=== PATIENT | male | born 1990 | race African-American/Black ===

== ENCOUNTER 2021-06-13 20:47 | Inpatient (IN) | payer MEDICAID, OTHER ==
[~2021-06-13] VITALS: Ht 180.3 cm; Wt 132.0 kg
[2021-06-13] MEDS ORDERED: SODIUM CHLORIDE 0.9% 1000ML BAG (SEPSIS BOLUS) IV ONE (21:15)
[2021-06-13] MEDS ORDERED: VANCOMYCIN 1 G PREMIX 200 ML IV ONE (21:45)
[2021-06-13] MEDS ORDERED: PIPERACILLIN/TAZ 3.375G PREMIX 50 ML IV ONE (21:45)
[2021-06-13 21:48] LABS: HEMATOCRIT. 46.3 % (42.0-52.0); HEMOGLOBIN. 15.3 g/dL (14.0-18.0); MEAN CORPUSCULAR HEMOGLOBIN 25.8 pg (28.0-32.0); MEAN CORPUSCULAR VOLUME 77.9 fL (80.0-94.0); MEAN PLATELET VOLUME 9.3 fl (7.4-10.4); PLATELET 311 x1000/uL (130-400); RED BLOOD CELL COUNT 5.94 mill/uL (4.7-6.1); RED CELL DISTRIBUTION WIDTH 14.1 % (11.6-14.6)
[2021-06-13 21:55] LABS: CHLORIDE 95 mEq/L (98-107)
[2021-06-13 21:56] LABS: INR 1.1; PROTHROMBIN TIME 11.8 sec (9.6-11.0)
[2021-06-13 21:58] LABS: ETHANOL BLOOD < 10 mg/dL
[2021-06-13 22:07] LABS: PLATELET ESTIMATE NORMAL
[2021-06-14] VITALS (19 sets, daily range): BP systolic 95–158; BP diastolic 45–94
[2021-06-14 00:34] LABS: CLARITY URINE CLEAR (CLEAR); COLOR URINE DARK YELLOW (YELLOW); KETONES URINE NEGATIVE (NEGATIVE); LEUKOCYTE ESTERASE URINE NEGATIVE (NEGATIVE); NITRITE URINE NEGATIVE (NEGATIVE); OCCULT BLOOD URINE TRACE (NEGATIVE); PROTEIN URINE 2+ (NEGATIVE); SPECIFIC GRAVITY URINE 1.082 (1.005-1.030)
[2021-06-14 00:50] LABS: *AMPHETAMINES SCREEN URINE NEGATIVE (NEGATIVE); *BARBITURATES SCREEN URINE NEGATIVE (NEGATIVE); *BENZODIAZEPINES SCREEN URINE NEGATIVE (NEGATIVE); *COCAINE SCREEN URINE NEGATIVE (NEGATIVE)
[2021-06-14 00:51] LABS: CANNABINOID URINE SCREEN NEGATIVE (NEGATIVE); METHADONE URINE SCREEN NEGATIVE (NEGATIVE); OPIATES URINE SCREEN NEGATIVE (NEGATIVE); PHENCYCLIDINE URINE SCREEN NEGATIVE (NEGATIVE)
[2021-06-14] MEDS ORDERED: PIPERACILLIN/TAZ 3.375G PREMIX 50 ML IV SCH (01:45)
[2021-06-14] MEDS ORDERED: ONDANSETRON HCL 4MG/2ML INJ IV PRN (01:45)
[2021-06-14] MEDS ORDERED: ACETAMINOPHEN 650MG SUPP PR PRN ×2 (01:45)
[2021-06-14] MEDS ORDERED: DIPHENHYDRAMINE 50MG/ML VIAL IV PRN (01:45)
[2021-06-14] MEDS ORDERED: VANCOMYCIN 1 G PREMIX 200 ML IV SCH (01:45)
[2021-06-14] MEDS: SODIUM CHLORIDE 0.9% 1,000 ML IV SCH ×3 (02:27→15:28)
[2021-06-14] MEDS ORDERED: PIPERACILLIN/TAZOBACTAM 3.375 G in DEXTROSE 5% WATER 50 ML IV SCH (06:00)
[2021-06-14] MEDS ORDERED: IOHEXOL-300 100 ML BOTTLE ONE (07:09)
[2021-06-14] MEDS ORDERED: VANCOMYCIN 1250MG in DEXTROSE 5% WATER 250ML IV SCH ×2 (08:00→18:00)
[2021-06-14] MEDS ORDERED: METRONIDAZOLE 500 MG PREMIX 100 ML IV SCH (12:00)
[2021-06-14] MEDS: PANTOPRAZOLE SODIUM 40 MG/VIAL IV SCH (12:46)
[2021-06-14] MEDS ORDERED: FENTANYL CITRATE/PF 50MCG/ML 2ML VIAL ONE (13:11)
[2021-06-14] MEDS ORDERED: SODIUM BICARBONATE 4% (2.4MEQ) 5ML VIAL IV ONE (13:11)
[2021-06-14] MEDS ORDERED: LIDOCAINE HCL 1% 20ML VIAL (Pyxis) INJ ONE (13:12)
[2021-06-14] MEDS ORDERED: FENTANYL CITRATE/PF 50MCG/ML 2ML VIAL IV NR (15:00)
[2021-06-14] MEDS: PIPERACILLIN/TAZOBACTAM 3.375G in DEXT 5% WATER 50ML IV SCH ×2 (15:27→22:17)
[2021-06-14] MEDS ORDERED: SODIUM CHLORIDE 0.9% 1,000 ML IV NR (15:30)
[2021-06-14 16:02] LABS: HEMATOCRIT. 40.1 % (42.0-52.0); HEMOGLOBIN. 13.3 g/dL (14.0-18.0); MEAN CORPUSCULAR HEMOGLOBIN 25.9 pg (28.0-32.0); MEAN CORPUSCULAR VOLUME 78.1 fL (80.0-94.0); MEAN PLATELET VOLUME 9.1 fl (7.4-10.4); PLATELET 231 x1000/uL (130-400); RED BLOOD CELL COUNT 5.14 mill/uL (4.7-6.1); RED CELL DISTRIBUTION WIDTH 13.9 % (11.6-14.6)
[2021-06-14 16:14] LABS: CHLORIDE 105 mEq/L (98-107)
[2021-06-14 17:36] LABS: PLATELET ESTIMATE NORMAL
[2021-06-14] MEDS ORDERED: SODIUM CHLORIDE 0.9% 1,000 ML IV SCH (18:48)
[2021-06-14] MEDS: DEXT 5%/0.9% NACL 1,000 ML IV SCH (20:22)
[2021-06-15] VITALS (12 sets, daily range): BP systolic 125–169; BP diastolic 70–101
[2021-06-15] MEDS: DEXT 5%/0.9% NACL 1,000 ML IV SCH ×3 (03:09→22:40)
[2021-06-15] MEDS: PIPERACILLIN/TAZOBACTAM 3.375G in DEXT 5% WATER 50ML IV SCH ×3 (06:05→21:19)
[2021-06-15 08:15] LABS: CHLORIDE 110 mEq/L (98-107)
[2021-06-15 08:24] LABS: HEMATOCRIT. 37.1 % (42.0-52.0); MEAN CORPUSCULAR HEMOGLOBIN 25.5 pg (28.0-32.0); MEAN CORPUSCULAR VOLUME 79.1 fL (80.0-94.0); MEAN PLATELET VOLUME 9.2 fl (7.4-10.4); PHOSPHORUS 1.6 mg/dL (2.5-4.9); PLATELET 230 x1000/uL (130-400); RED BLOOD CELL COUNT 4.69 mill/uL (4.7-6.1); RED CELL DISTRIBUTION WIDTH 14.5 % (11.6-14.6)
[2021-06-15] MEDS: PANTOPRAZOLE SODIUM 40 MG/VIAL IV SCH (09:21)
[2021-06-15 13:44] LABS: ATYPICAL LYMPHOCYTES 1; NUCLEATED RED BLOOD CELLS 2 /100 WBC
[2021-06-15 13:45] LABS: PLATELET ESTIMATE NORMAL
[2021-06-15] MEDS ORDERED: POTASSIUM PHOS,M-BASIC-D-BASIC 30 MMOL in DEXT 5% WATER 500 ML IV NR (17:00)
[2021-06-16] VITALS (13 sets, daily range): BP systolic 123–160; BP diastolic 55–95
[2021-06-16 06:18] LABS: CHLORIDE 112 mEq/L (98-107)
[2021-06-16 06:29] LABS: PHOSPHORUS 2.6 mg/dL (2.5-4.9)
[2021-06-16] MEDS: PIPERACILLIN/TAZOBACTAM 3.375G in DEXT 5% WATER 50ML IV SCH ×2 (06:30→14:00)
[2021-06-16] MEDS: POLYVINYL ALCOHOL OPHTH DROPS 15ML BOTHEYE SCH ×4 (06:31→23:17)
[2021-06-16] MEDS: DEXT 5%/0.9% NACL 1,000 ML IV SCH ×4 (06:31→20:03)
[2021-06-16] MEDS: PANTOPRAZOLE SODIUM 40 MG/VIAL IV SCH (09:00)
[2021-06-16] MEDS: AMPICILLIN SOD/SULBACTAM NA 3 G in SODIUM CHLORIDE 0.9% 100 ML IV SCH (20:03)
[2021-06-17] VITALS (11 sets, daily range): BP systolic 113–149; BP diastolic 55–96
[2021-06-17] MEDS: AMPICILLIN SOD/SULBACTAM NA 3 G in SODIUM CHLORIDE 0.9% 100 ML IV SCH ×4 (02:09→21:30)
[2021-06-17] MEDS: DEXT 5%/0.9% NACL 1,000 ML IV SCH ×3 (03:54→21:31)
[2021-06-17] MEDS: POLYVINYL ALCOHOL OPHTH DROPS 15ML BOTHEYE SCH ×3 (05:07→18:28)
[2021-06-17] MEDS: PANTOPRAZOLE SODIUM 40 MG/VIAL IV SCH (08:40)
[2021-06-17] MEDS ORDERED: LIDOCAINE HCL 1% 20ML VIAL (Pyxis) INJ ONE (08:45)
[2021-06-18] VITALS (8 sets, daily range): BP systolic 127–151; BP diastolic 71–84
[2021-06-18] MEDS: AMPICILLIN SOD/SULBACTAM NA 3 G in SODIUM CHLORIDE 0.9% 100 ML IV SCH ×4 (01:35→20:23)
[2021-06-18] MEDS: POLYVINYL ALCOHOL OPHTH DROPS 15ML BOTHEYE SCH ×5 (01:35→22:59)
[2021-06-18] MEDS: DEXT 5%/0.9% NACL 1,000 ML IV SCH ×3 (03:29→17:10)
[2021-06-18] MEDS: PANTOPRAZOLE SODIUM 40 MG/VIAL IV SCH (08:34)
[2021-06-18] MEDS ORDERED: IOHEXOL-300 50 ML BOTTLE IV ONE (10:35)
[2021-06-18 16:57] LABS: HEMATOCRIT. 37.1 % (42.0-52.0); HEMOGLOBIN. 12.3 g/dL (14.0-18.0); MEAN CORPUSCULAR VOLUME 78.6 fL (80.0-94.0); MEAN PLATELET VOLUME 8.6 fl (7.4-10.4); PLATELET 329 x1000/uL (130-400); RED BLOOD CELL COUNT 4.73 mill/uL (4.7-6.1); RED CELL DISTRIBUTION WIDTH 14.4 % (11.6-14.6)
[2021-06-18 17:05] LABS: CHLORIDE 114 mEq/L (98-107)
[2021-06-18 18:05] LABS: PLATELET ESTIMATE NORMAL
[2021-06-19] VITALS: BP 130/75
[2021-06-19] MEDS: AMPICILLIN SOD/SULBACTAM NA 3 G in SODIUM CHLORIDE 0.9% 100 ML IV SCH ×4 (01:05→20:06)
[2021-06-19] MEDS: DEXT 5%/0.9% NACL 1,000 ML IV SCH ×2 (01:06→12:10)
[2021-06-19 04:00] VITALS: BP 130/88
[2021-06-19] MEDS: POLYVINYL ALCOHOL OPHTH DROPS 15ML BOTHEYE SCH ×3 (06:19→17:56)
[2021-06-19 08:00] VITALS: BP 129/78
[2021-06-19 08:20] LABS: HEMATOCRIT 32.8 % (42.0-52.0); HEMOGLOBIN 10.6 g/dL (14.0-18.0); MEAN CORPUSCULAR HEMOGLOBIN 25.7 pg (28.0-32.0); MEAN CORPUSCULAR VOLUME 79.2 fL (80.0-94.0); PLATELET 293 x1000/uL (130-400); RED BLOOD CELL COUNT 4.15 mill/uL (4.7-6.1); RED CELL DISTRIBUTION WIDTH 14.5 % (11.6-14.6)
[2021-06-19] MEDS: PANTOPRAZOLE SODIUM 40 MG/VIAL IV SCH (09:00)
[2021-06-19 12:00] VITALS: BP 124/40
[2021-06-19 15:41] VITALS: BP_SYST 145; BP_SYST 147; BP_DIAS 78
[2021-06-19 20:00] VITALS: BP 150/90
[2021-06-19] MEDS: OMEPRAZOLE 20MG CAPSULE EXTENDED RELEASE PO SCH (20:08)
[2021-06-20] VITALS (7 sets, daily range): BP systolic 126–154; BP diastolic 73–91
[2021-06-20] MEDS: AMPICILLIN SOD/SULBACTAM NA 3 G in SODIUM CHLORIDE 0.9% 100 ML IV SCH ×2 (02:07→09:16)
[2021-06-20] MEDS: POLYVINYL ALCOHOL OPHTH DROPS 15ML BOTHEYE SCH ×3 (05:26→12:00)
[2021-06-20] MEDS: OMEPRAZOLE 20MG CAPSULE EXTENDED RELEASE PO SCH (09:17)
== END 2021-06-20 21:54 | disposition home health service (06) | DRG 720 ==
LOC: ER 20:47 → MICUSO 23:44 → EDBEDREQSVC 23:48 → EDBEDREQ 23:48 → EDBEDREQTM 23:48 → 5EST 06-14 08:40
PROVIDERS: ADMIT Internal Medicine; ATTEND Internal Medicine
PROC: 0D9670Z Drainage of Stomach with Drainage Device, Via Natural or Artificial Opening (ICD-10-PCS; principal; 2021-06-13)
PROC: 0W9J30Z Drainage of Pelvic Cavity with Drainage Device, Percutaneous Approach (ICD-10-PCS; 2021-06-14)
PROC: 05HY33Z Insertion of Infusion Device into Upper Vein, Percutaneous Approach (ICD-10-PCS; 2021-06-17)
PROC: B54MZZA Ultrasonography of Right Upper Extremity Veins, Guidance (ICD-10-PCS; 2021-06-17)
DX: A41.9 Sepsis, unspecified organism (principal); K35.33 Acute appendicitis with perforation, localized peritonitis, and gangrene, with abscess; K56.609 Unspecified intestinal obstruction, unspecified as to partial versus complete obstruction; N17.9 Acute kidney failure, unspecified; R65.20 Severe sepsis without septic shock; E80.6 Other disorders of bilirubin metabolism; B96.20 Unspecified Escherichia coli [E. coli] as the cause of diseases classified elsewhere; Z20.822 Contact with and (suspected) exposure to COVID-19
CPT/HCPCS: 36415; 71045; 74018; 74176; 74177; 76937; 77012; 80048; 80053; 80202; 80305; 80320; 81003; 83605; 83735; 84100; 84145; 84484; 85025; 85027; 87077; 87186; 87426; 93005; 93971; 99152; 99153; 99291; C1725; C1729; C1769; C9113; J0295; J2543; J3010; J3370; J3490; J7030; J7040; J7042; J7050; J7060; J7070; Q9967; G0480; G0500

== ENCOUNTER 2021-06-28 22:10 | Inpatient (IN) | payer MEDICAID, OTHER ==
[~2021-06-28] VITALS: Ht 182.9 cm; Wt 127.5 kg
[2021-06-29] MEDS ORDERED: METRONIDAZOLE 500 MG PREMIX 100 ML IV ONE
[2021-06-29] MEDS ORDERED: CEFTRIAXONE 1 G PREMIX 50 ML IV ONE
[2021-06-29] MEDS ORDERED: SODIUM CHLORIDE 0.9% 1000ML BAG (SEPSIS BOLUS) IV ONE
[2021-06-29 00:41] LABS: BASOPHILS % 0.3 % (0.0-2.0); EOSINOPHILS % 0.2 % (0.0-5.0); HEMATOCRIT. 31.8 % (42.0-52.0); HEMOGLOBIN. 10.7 g/dL (14.0-18.0); LYMPHOCYTES % 7.3 % (20.0-50.0); MEAN CORPUSCULAR HEMOGLOBIN 26.2 pg (28.0-32.0); MEAN PLATELET VOLUME 7.8 fl (7.4-10.4); MONOCYTES % 10.2 % (2.0-8.0); PLATELET 473 x1000/uL (130-400); RED BLOOD CELL COUNT 4.08 mill/uL (4.7-6.1); RED CELL DISTRIBUTION WIDTH 14.3 % (11.6-14.6)
[2021-06-29 00:49] LABS: CHLORIDE 99 mEq/L (98-107)
[2021-06-29 00:55] LABS: CLARITY URINE CLEAR (CLEAR); COLOR URINE YELLOW (YELLOW); KETONES URINE NEGATIVE (NEGATIVE); LEUKOCYTE ESTERASE URINE NEGATIVE (NEGATIVE); NITRITE URINE NEGATIVE (NEGATIVE); OCCULT BLOOD URINE NEGATIVE (NEGATIVE); PROTEIN URINE NEGATIVE (NEGATIVE); SPECIFIC GRAVITY URINE 1.016 (1.005-1.030); UROBILINOGEN URINE 0.2 E.U./dL (0.2-1.0)
[2021-06-29 01:24] LABS: INR 1.2; PROTHROMBIN TIME 12.3 sec (9.6-11.0)
[2021-06-29] MEDS ORDERED: IOHEXOL-300 100 ML BOTTLE ONE (07:06)
[2021-06-29] MEDS ORDERED: HYDROCODONE/ACETAMINOPHEN 5/325MG TABLET PO PRN (08:45)
[2021-06-29] MEDS ORDERED: ONDANSETRON HCL 4MG/2ML INJ IV PRN (08:45)
[2021-06-29] MEDS ORDERED: NALOXONE HCL 0.4MG/ML VIAL IV PRN (09:00)
[2021-06-29] MEDS: PIPERACILLIN/TAZOBACTAM 3.375 G in DEXTROSE 5% WATER 50 ML IV SCH ×3 (10:52→23:17)
[2021-06-29 14:00] VITALS: BP 138/87
[2021-06-29 14:30] VITALS: BP 138/87
[2021-06-29] MEDS ORDERED: ACETAMINOPHEN 325MG TABLET PO PRN (14:30)
[2021-06-29] MEDS: FUROSEMIDE 40MG/4ML VIAL IVP SCH (16:24)
[2021-06-29 16:30] VITALS: BP 120/69
[2021-06-29 20:00] VITALS: BP 129/94
[2021-06-30] VITALS: BP 125/83
[2021-06-30 04:00] VITALS: BP 114/73
[2021-06-30] MEDS: PIPERACILLIN/TAZOBACTAM 3.375 G in DEXTROSE 5% WATER 50 ML IV SCH ×3 (06:08→21:20)
[2021-06-30 06:09] LABS: BASOPHILS % 0.3 % (0.0-2.0); EOSINOPHILS % 0.4 % (0.0-5.0); HEMATOCRIT. 30.8 % (42.0-52.0); LYMPHOCYTES % 8.3 % (20.0-50.0); MEAN CORPUSCULAR HEMOGLOBIN 25.2 pg (28.0-32.0); MEAN CORPUSCULAR VOLUME 78.1 fL (80.0-94.0); MEAN PLATELET VOLUME 8.1 fl (7.4-10.4); MONOCYTES % 12.6 % (2.0-8.0); NEUTROPHILS % 78.4 % (40.0-76.0); PLATELET 396 x1000/uL (130-400); RED BLOOD CELL COUNT 3.95 mill/uL (4.7-6.1); RED CELL DISTRIBUTION WIDTH 13.9 % (11.6-14.6)
[2021-06-30] MEDS: FUROSEMIDE 40MG/4ML VIAL IVP SCH ×2 (06:09→17:05)
[2021-06-30 06:25] LABS: CHLORIDE 101 mEq/L (98-107)
[2021-06-30 07:52] VITALS: BP 130/84
[2021-06-30 12:04] VITALS: BP 136/84
[2021-06-30] MEDS ORDERED: IOHEXOL-300 50 ML BOTTLE IV ONE (13:02)
[2021-06-30 16:02] VITALS: BP 139/86
[2021-06-30 20:00] VITALS: BP 141/96
[2021-07-01] VITALS: BP 111/68
[2021-07-01 04:00] VITALS: BP 107/68
[2021-07-01] MEDS: FUROSEMIDE 40MG/4ML VIAL IVP SCH ×2 (06:38→18:02)
[2021-07-01] MEDS: PIPERACILLIN/TAZOBACTAM 3.375 G in DEXTROSE 5% WATER 50 ML IV SCH ×2 (06:38→15:55)
[2021-07-01 08:00] VITALS: BP 122/77
[2021-07-01 12:00] VITALS: BP 110/68
[2021-07-01] MEDS ORDERED: FURO-151 MT (12:34)
[2021-07-01] MEDS ORDERED: POTA10CA42 MT (12:34)
[2021-07-01 16:00] VITALS: BP 125/86
[2021-07-01 19:54] VITALS: BP 137/94
[2021-07-01] MEDS ORDERED: LEVO750T46 MT (21:10)
[2021-07-01] MEDS ORDERED: LEVOFLOXACIN 750MG PREMIX 150 ML IV SCH (22:30)
[2021-07-01] MEDS ORDERED: METRONIDAZOLE 500 MG PREMIX 100 ML IV SCH (23:00)
== END 2021-07-01 22:46 | disposition home or self-care (01) | DRG 720 ==
LOC: ER 22:10 → MICUSO 06-29 02:31 → 6WST 06-29 13:03
PROVIDERS: ADMIT Internal Medicine; ATTEND Internal Medicine
DX: A41.9 Sepsis, unspecified organism (principal); I50.31 Acute diastolic (congestive) heart failure; E44.0 Moderate protein-calorie malnutrition; E66.9 Obesity, unspecified; L02.211 Cutaneous abscess of abdominal wall; N39.0 Urinary tract infection, site not specified; B96.5 Pseudomonas (aeruginosa) (mallei) (pseudomallei) as the cause of diseases classified elsewhere; B96.89 Other specified bacterial agents as the cause of diseases classified elsewhere; D50.9 Iron deficiency anemia, unspecified; E87.1 Hypo-osmolality and hyponatremia; K52.9 Noninfective gastroenteritis and colitis, unspecified; Z68.38 Body mass index [BMI] 38.0-38.9, adult; Z71.3 Dietary counseling and surveillance
CPT/HCPCS: 36415; 71045; 74176; 74177; 80048; 80053; 81003; 83605; 84145; 84484; 85025; 87070; 87077; 87186; 93306; 93970; 99291; J0696; J1940; J1956; J2543; J3490; J7030; J7060; Q9967